=== PATIENT | female | born 1970 | race Caucasian/White ===

== ENCOUNTER 2024-02-01 07:47 | Day surgery (SDC) | payer MEDICARE ==
[2024-02-01 08:03] LABS: HCG URINE TEST NEGATIVE (NEGATIVE)
[2024-02-01] MEDS ORDERED: Lactated Ringers 1,000 ML IV ONE (09:33)
== END 2024-02-01 08:50 | disposition home or self-care (01) ==
LOC: SDC-PAIN 07:47
PROVIDERS: ATTEND Psychiatry & Neurology Pain Medicine
DX: Z53.8 Procedure and treatment not carried out for other reasons (principal); E11.9 Type 2 diabetes mellitus without complications
CPT/HCPCS: 81025; 82947

== ENCOUNTER 2024-02-08 07:05 | Day surgery (SDC) | payer MEDICARE ==
[2024-02-08] MEDS ORDERED: Xylocaine-Mpf 2% 5 Ml Vial IJ ONE (07:06)
[2024-02-08 08:02] LABS: HCG URINE TEST NEGATIVE (NEGATIVE)
[2024-02-08] MEDS ORDERED: DIPRIVAN 200 MG/20 ML IV ONE (09:03)
[2024-02-08] MEDS ORDERED: Lactated Ringers 1,000 ML IV ONE (09:50)
--- NOTE | 2024-02-08 11:38 | XRAY ---
Indication: Bilateral L4-S1 MBB. Intraoperative fluoroscopy provided 15 seconds. Single digital spot image submitted for interpretation demonstrates posterior needle tips projecting over the expected left and right L4-S1 nerve roots. Correlate with intraoperative findings/report.
--- NOTE | 2024-02-08 13:08 | XRAY ---
15 seconds of fluoroscopy was used in surgery for a bilateral L4-S1 MBB.
== END 2024-02-08 09:30 | disposition home or self-care (01) ==
LOC: SDC-PAIN 07:05
PROVIDERS: ATTEND Psychiatry & Neurology Pain Medicine
DX: M47.816 Spondylosis without myelopathy or radiculopathy, lumbar region (principal); E11.9 Type 2 diabetes mellitus without complications
CPT/HCPCS: 64493; 64494; 72020; 77002; 81025; 82947; J2704

== ENCOUNTER 2024-04-04 06:29 | Day surgery (SDC) | payer MEDICARE ==
[2024-04-04] MEDS ORDERED: BUPIVACAINE 0.5% VIAL IJ ONE (06:30)
[2024-04-04 08:22] LABS: HCG URINE TEST NEGATIVE (NEGATIVE)
[2024-04-04] MEDS ORDERED: DIPRIVAN 200 MG/20 ML IV ONE (09:50)
--- NOTE | 2024-04-04 13:28 | XRAY ---
Indication: Bilateral L4-S1 MBB. Intraoperative fluoroscopy provided for 17 seconds. Single digital spot image submitted for interpretation demonstrates posterior needle tips projecting over expect left and right L4-S1 nerve roots. Correlate with intraoperative findings/report.
--- NOTE | 2024-04-04 14:25 | XRAY ---
17 seconds of fluoroscopy was used in surgery for a bilateral L4-S1 MBB.
== END 2024-04-04 10:15 | disposition home or self-care (01) ==
LOC: SDC-PAIN 06:29
PROVIDERS: ATTEND Psychiatry & Neurology Pain Medicine
DX: M47.816 Spondylosis without myelopathy or radiculopathy, lumbar region (principal); E11.9 Type 2 diabetes mellitus without complications
CPT/HCPCS: 64493; 64494; 72020; 77002; 81025; 82947; J2704

== ENCOUNTER 2024-04-25 06:49 | Day surgery (SDC) | payer MEDICARE ==
[2024-04-25] MEDS ORDERED: Depo-Medrol 40 MG/ML IM ONE (06:50)
[2024-04-25] MEDS ORDERED: LIDOCAINE HCL 1% AMPUL 5 ML IJ ONE (06:50)
[2024-04-25] MEDS ORDERED: BUPIVACAINE 0.5% VIAL IJ ONE (06:50)
[2024-04-25 08:10] LABS: HCG URINE TEST NEGATIVE (NEGATIVE)
[2024-04-25] MEDS ORDERED: DIPRIVAN 200 MG/20 ML IV ONE (09:26)
--- NOTE | 2024-04-25 13:01 | XRAY ---
Indication: Left L4-S1 RFA. Intraoperative fluoroscopy provided for 24 seconds. 5 digital spot image submitted for interpretation demonstrates posterior needle tips projecting over expected left L4-S1 nerve roots. Correlate with intraoperative findings/report.
--- NOTE | 2024-04-25 13:10 | XRAY ---
24 seconds of fluoroscopy was used in surgery for a left L4-S1 RFA.
== END 2024-04-25 09:53 | disposition home or self-care (01) ==
LOC: SDC-PAIN 06:49
PROVIDERS: ATTEND Psychiatry & Neurology Pain Medicine
DX: M47.817 Spondylosis without myelopathy or radiculopathy, lumbosacral region (principal); E11.9 Type 2 diabetes mellitus without complications
CPT/HCPCS: 64635; 64636; 72100; 77002; 81025; 82947; J2704

== ENCOUNTER 2024-05-09 06:56 | Day surgery (SDC) | payer MEDICARE ==
[2024-05-09] MEDS ORDERED: LIDOCAINE HCL 1% AMPUL 5 ML IJ ONE (06:57)
[2024-05-09] MEDS ORDERED: Depo-Medrol 40 MG/ML IM ONE (06:57)
[2024-05-09] MEDS ORDERED: BUPIVACAINE 0.5% VIAL IJ ONE (06:57)
[2024-05-09 08:41] LABS: HCG URINE TEST NEGATIVE (NEGATIVE)
[2024-05-09] MEDS ORDERED: DIPRIVAN 200 MG/20 ML IV ONE (09:36)
[2024-05-09] MEDS ORDERED: Xylocaine-Mpf 2% 5 Ml Vial ONE (09:36)
--- NOTE | 2024-05-09 18:52 | XRAY ---
Indication: Right L4-S1 RFA. Intraoperative fluoroscopy provided for 19 seconds. 3 digital spot image submitted for interpretation demonstrates posterior needle tips projecting over the expected right L4-S1 nerve roots. Correlate with intraoperative findings/report.
--- NOTE | 2024-05-09 19:23 | XRAY ---
19 seconds of fluoroscopy was used in surgery for a right L4-S1 RFA.
== END 2024-05-09 10:05 | disposition home or self-care (01) ==
LOC: SDC-PAIN 06:56
PROVIDERS: ATTEND Psychiatry & Neurology Pain Medicine
DX: M47.816 Spondylosis without myelopathy or radiculopathy, lumbar region (principal); E11.9 Type 2 diabetes mellitus without complications
CPT/HCPCS: 64635; 64636; 72100; 77002; 81025; 82947; J2704

== ENCOUNTER 2024-07-19 07:09 | Day surgery (SDC) | payer MEDICARE ==
[2024-07-19] MEDS ORDERED: Depo-Medrol 40 MG/ML IM ONE (07:10)
[2024-07-19] MEDS ORDERED: BUPIVACAINE 0.5% VIAL IJ ONE (07:10)
[2024-07-19 07:18] LABS: HCG URINE TEST NEGATIVE (NEGATIVE)
[2024-07-19] MEDS ORDERED: propofoL IV ONE (08:20)
--- NOTE | 2024-07-19 10:42 | XRAY ---
Indication: Right hip injection. Intraoperative fluoroscopy provided for 16 seconds. Single digital spot image submitted for interpretation demonstrates needle tip projecting lateral to right femur neck. Small amount of contrast injected for needle tip placement. Correlate with intraoperative findings/report.
--- NOTE | 2024-07-19 13:13 | XRAY ---
16 seconds of fluoroscopy was used in surgery for a right intra-articular hip injection.
== END 2024-07-19 08:51 | disposition home or self-care (01) ==
LOC: SDC-PAIN 07:09
PROVIDERS: ATTEND Psychiatry & Neurology Pain Medicine
DX: M16.11 Unilateral primary osteoarthritis, right hip (principal); E11.9 Type 2 diabetes mellitus without complications
CPT/HCPCS: 20610; 73501; 77002; 81025; 82947; J2704; Q9966